=== PATIENT | female | born 1975 | race Hispanic/Latino ===

== ENCOUNTER 2018-03-26 10:55 | Emergency (ER) | payer SELFPAY ==
[~2018-03-26] VITALS: Ht 152.4 cm; Wt 52.6 kg
== END 2018-03-26 11:34 | disposition home or self-care (01) ==
LOC: FSED 10:55
DX: L03.211 Cellulitis of face (principal); S00.81XA Abrasion of other part of head, initial encounter; W01.0XXA Fall on same level from slipping, tripping and stumbling without subsequent striking against object, initial encounter; Y99.0 Civilian activity done for income or pay
CPT/HCPCS: 99283